=== PATIENT | female | born 1995 | race Caucasian/White ===

== ENCOUNTER → 2016-12-13 | Outpatient (CLI) | payer OTHER ==
[~2016-12-13] MED LIST: [UNRECOGNIZED DRUG - OTHER]
== END | disposition home or self-care (01) ==
LOC: C.LAB1850 11:33
PROVIDERS: ATTEND Nurse Practitioner Family
DX: J02.9 Acute pharyngitis, unspecified (principal)

== ENCOUNTER → 2017-06-06 | Outpatient (CLI) | payer OTHER ==
[2017-06-06 10:39] LABS: BASO % 0.8 %; BASO ABS # 0.04 K/uL (0-0.2); COMPLETE YES; EOS % 3.2 %; HEMATOCRIT 40.9 % (37-47); IG% 0.2 %; LYMPH % 37.6 %; LYMPH ABS # 1.87 K/uL (1.2-3.4); MEAN CELL VOLUME 88.9 fL (80-100); MEAN CORPUSCULAR HEMOGLOBIN 30.2 pg (25-34); MEAN PLATELET VOLUME 10.1 fL (7.4-10.4); MONO % 9.3 %; NEUT % 48.9 %; PLATELET COUNT 258 K/uL (130-400); WHITE BLOOD COUNT 4.97 K/uL (4.8-10.8)
[2017-06-06 11:07] LABS: ALT/SGPT 18 U/L (12-78); AST/SGOT 12 U/L (15-37); BLOOD UREA NITROGEN 12 mg/dl (7-18); CARBON DIOXIDE 29 mmol/L (21-32); CHLORIDE 104 mmol/L (98-107); CREATININE 0.74 mg/dl (0.60-1.20); GLUCOSE 83 mg/dl (70-99); SODIUM 137 mmol/L (136-145)
[2017-06-06 11:18] LABS: ALB/GLOB RATIO 1.1 (0.9-2); ALKALINE PHOSPHATASE 51 U/L (45-117); CHOLESTEROL 147 mg/dl (0-200); CHOLESTEROL/HDL RATIO 3.2; HDL CHOLESTEROL 46 mg/dl; LDL CHOLESTEROL CALCULATED 90 mg/dl; TRIGLYCERIDES 57 mg/dl (0-150); VERY LOW DENSITY LIPOPROT CALC 11 mg/dl
== END | disposition home or self-care (01) ==
LOC: C.LAB1850 09:38
PROVIDERS: ATTEND Nurse Practitioner Adult Health
DX: Z00.00 Encounter for general adult medical examination without abnormal findings (principal); R63.5 Abnormal weight gain; Z13.0 Encounter for screening for diseases of the blood and blood-forming organs and certain disorders involving the immune mechanism

== ENCOUNTER → 2017-06-13 | Outpatient (CLI) | payer OTHER ==
--- NOTE | 2017-06-13 14:03 | DIAGNOSTIC IMAGING REPORT ---
SOFT TISS HEAD/NECK-THYROID CLINICAL HISTORY: 22 years-old Female with E04.9 Thyroid [id number]. COMPARISON: None available TECHNIQUE: Multiple real time sonographic images of the thyroid were obtained accessing kumari scale appearance and color doppler flow. FINDINGS: MEASUREMENTS: Right lobe: 4.2 x 1.4 x 1.6 cm Left lobe: 3.9 x 1.6 x 1.2 cm Isthmus: 0.3 cm PARENCHYMA: The thyroid parenchymal echotexture is generally homogeneous. NODULES: Cysts of the left thyroid are noted measuring up to 0.5 cm. Left mid pole cyst measuring 0.3 cm contains nonshadowing echogenic focus suggesting colloid. There is also a probable colloid cyst within the mid pole right thyroid measuring up to 3 mm. IMPRESSION: 1. No suspicious thyroid nodules identified. 2. Subcentimeter cystic lesions of the bilateral thyroid lobes suggest colloid cysts. The above report was generated using voice recognition software. It may contain grammatical, syntax or spelling errors. Electronically signed by: Neto Redman M.D. 06/13/2017 2:01 PM Dictated Date/Time: 06/13/2017 1:58 PM
== END | disposition home or self-care (01) ==
LOC: C.ULTR 13:02
PROVIDERS: ATTEND Nurse Practitioner Adult Health
DX: E04.9 Nontoxic goiter, unspecified (principal)

== ENCOUNTER 2021-11-28 07:44 | Inpatient (IN) ==
[2021-11-28] MEDS ORDERED: OXYTOCIN 30 UNITS/500 ML BAG IV PRN (07:55)
[2021-11-28 08:39] LABS: Hematocrit (blood only) 36.5 % (37-47); Hemoglobin 12.2 g/dL (12.0-16.0); Mean Corpuscular Hemoglobin 28.8 pg (25-34); Mean Corpuscular Hgb Conc 33.4 g/dL (32-36); Mean Corpuscular Volume 86.3 fL (80-100); Mean Platelet Volume 11.4 fL (7.4-10.4); Platelet Count 245 K/uL (130-400); RDW Coefficient of Variation 13.1 % (11.5-14.5); RDW Standard Deviation 41.1 fL (36.4-46.3); Red Blood Count 4.23 M/uL (4.2-5.4); White Blood Count 8.36 K/uL (4.8-10.8)
[2021-11-28] MEDS ORDERED: DINOPROSTONE 10 MG INSERT PV ONE (09:23)
--- NOTE | 2021-11-28 10:35 | History & Physical Report ---
Date of Service November 28, 2021 Assessment & Plan (1) Post-dates : Plan: Cervidil for cervica ripening Admission and Anticipated Discharge Date Admission Date: November 28, 2021 History of Present Illness Chief Complaint: induction of labor post-dates Primary Care Provider: Chaya Beckford MD 26 F P0000 at 41 weeks admitted for induction of labor for post-dates. GBS is negative. Covid is negative. Allergies Allergy/AdvReac Type Severity Reaction Status Date / Time No Known Drug Allergies Allergy Verified 12/19/18 16:07 Home Medications Medication Instructions Recorded Confirmed Type ferrous sulfate 325 mg (65 mg 325 mg PO DAILY 11/28/21 11/28/21 History iron) tablet (Iron (ferrous sulfate)) prenat.vits,olya,[id number] 1 tab PO DAILY 11/28/21 11/28/21 History Patient History Medical History Cyst of thyroid Fatty liver Generalized anxiety disorder Palpitations Ringing in ears Thyroid enlarged Surgical History S/P tonsillectomy S/P tooth extraction Family History Grandfather (Paternal) Diabetes Hypertension Father Graves disease Grandmother (Maternal) Hypertension Diabetes Mother Hypertension Pulmonary embolism Deep vein thrombosis Grandmother (Paternal) Multiple sclerosis Denies family history of Colon cancer Ovarian cancer Prostate cancer Myocardial infarction Breast cancer Social History Smoking Status: Never smoker Second Hand Exposure: No; Hx Alcohol Use: No Hx Substance Use: No Preferred Language: Icelandic Communication Ability: Effective Visual Impairment: No Limitations Hearing Ability: Normal Geospatial Scientist Required: No Beliefs That Will Affect Care: None marital status: Current Living Situation: Spouse current occupational status: employed current occupation: [employer]. Other Information That Helps Us Care for You: No Feels Safe at Home: Yes Safety Concerns: Feels Safe At This Time Dental Care, Regularly: Yes Physical Activity Frequency: 3-4 Times per Week Assistive Devices: None OB History primip PUPPY WALKER History neg Review of Systems All systems reviewed & are unremarkable except as noted in HPI & below Physical Exam Constitutional: WD/WN, vitals as above Eyes: PERRL, conjunctivae normal, anicteric sclerae Respiratory: normal respiratory effort, lungs clear to auscultation Cardiovascular: RRR, no murmur, no edema Skin: no rashes, warm and dry Neurologic: patellar DTR's 2+ bilat, sensation intact Psychiatric: A+Ox3, euthymic affect Genitourinary: no vaginal lesions, no adnexal mass OB Exam Abdomen: + fundal height and + vertex Manual OB Exam: + cervical dilation fingertip, + cervical effacement 50% and + station high OB Exam Monitor Tracing: + external FHT monitor used, + external uterine monitor used, + category I and + normal FHT variability Cervidil 10 mg placed vaginally Results & Data ([facility]) Vital Signs (Past 12 Hours) Vital Signs Temp Pulse Resp BP 11/28/21 08:30 36.5 C 60 18 115/69 Laboratory Results Laboratory Results - last 72 hr 11/28/21 11/28/21 08:09 08:09 WBC 8.36 RBC 4.23 Hgb 12.2 Hct 36.5 L MCV 86.3 MCH 28.8 MCHC 33.4 RDW Std Deviation 41.1 RDW Coeff of Edis 13.1 Plt Count 245 MPV 11.4 H Blood Type A Positive Antibody Screen NEGATIVE Code Status & VTE Plan VTE Prophylaxis Plan VTE Prophylaxis will be ordered: No Monitoring External Monitor Cat 1
--- NOTE | 2021-11-29 00:04 | Labor Progress Brief Note ---
Date of Service November 29, 2021 Assessment & Plan Admission and Anticipated Discharge Date Admission Date: November 28, 2021 Physical Exam Genitourinary: Manual OB Exam: + cervical dilation fingertip, + cervical effacement 50% and + station high and -2 OB Exam Monitor Tracing: + external FHT monitor used, + external uterine monitor used, + category I and + normal FHT variability Cervidil is now out. cervix is softening. Will give Cytotec for further ripening. Results & Data ([facility]) Vital Signs (Past 12 Hours) Vital Signs Temp Pulse Resp BP 11/28/21 22:32 67 106/58 L 11/28/21 21:11 72 120/66 11/28/21 19:04 36.6 C 72 20 120/65 11/28/21 14:52 36.7 C 69 18 100/58 L
[2021-11-29] MEDS: miSOPROStoL 50 MCG TAB PO SCH ×4 (02:16→17:43)
[2021-11-29] MEDS ORDERED: BUTORPHANOL TARTRATE 1 MG/ML VIAL IV PRN (02:35)
--- NOTE | 2021-11-29 07:42 | Obstetrical Progress Note ---
Date of Service November 29, 2021 Assessment & Plan Admission and Anticipated Discharge Date Admission Date: November 28, 2021 Subjective Patent is seen and examined Reviewed her records and confirmed with her No medical problems No h/o STD's, no h/o HSV/ Chlamydia/ GC Received Cervidil and PO Cytotecx1 cxs q 3-5 min VE; 1/ 50-60%/ -3, posterior Unable to get another dose of Cytotec Plan o ear/ shower and start Oxytocin Continue to monitor Results & Data ([facility]) Vital Signs (Past 12 Hours) Vital Signs Temp Pulse Resp BP 11/29/21 07:00 36.9 C 63 18 102/63 11/29/21 05:49 36.7 C 66 16 118/58 L 11/29/21 02:17 68 20 113/66 11/28/21 22:32 67 20 106/58 L 11/28/21 21:11 72 120/66
[2021-11-29] MEDS: OXYTOCIN 30 UNITS/500 ML BAG IV PRN ×2 (13:30→13:59)
[2021-11-29] MEDS: LACTATED RINGER'S 1,000 ML IV PRN ×4 (13:30→18:18)
[2021-11-29] MEDS ORDERED: BUPIVACAINE 0.25% 30 ML VIAL ONE (16:44)
[2021-11-29] MEDS ORDERED: fentaNYL citrate 100 MCG/2 ML VIAL ONE (16:44)
[2021-11-29] MEDS ORDERED: ePHEDrine sulfate 50 MG/ML AMP ONE (16:44)
[2021-11-29] MEDS ORDERED: SODIUM CHLORIDE 0.9% INJ 10 ML VIAL ONE (16:44)
[2021-11-29] MEDS ORDERED: fentaNYL 2MCG/ML ROPIVACAINE 1.25MG/ML 100 ML BAG EPI ONE (16:45)
--- NOTE | 2021-11-29 17:12 | Anesthesiology Consultation ---
Date of Service November 29, 2021 Assessment & Plan (1) Encounter for pre-operative examination: Chart Review Chart Review: Acceptable Risk for Labor Epidural History Height/Weight Height: 5 ft Weight: 105.687 kg Allergies Allergy/AdvReac Type Severity Reaction Status Date / Time No Known Drug Allergies Allergy Verified 12/19/18 16:07 Medications Home Medications Medication Instructions Recorded Confirmed Last Taken ferrous sulfate 325 mg (65 mg 325 mg PO DAILY 11/28/21 11/28/21 11/28/21 06:30 iron) tablet (Iron (ferrous sulfate)) prenat.vits,olya,[id number]-[id number]-twsku 1 tab PO DAILY 11/28/21 11/28/21 11/28/21 06:30 Active Medications Generic Name Dose Route Start Last Admin Trade Name Freq PRN Reason Stop Dose Admin Butorphanol Tartrate 1 mg 11/29/21 02:35 11/29/21 14:59 Butorphanol Tartrate 1 Mg/Ml Vial IV 12/29/21 02:34 1 mg Q2HWA PRN Administration Pain Lactated Ringer's 1,000 mls @ 125 mls/hr 11/28/21 07:55 11/29/21 13:59 Lr IV 11/30/21 07:54 125 mls/hr .Q8H PRN Administration L&D Protocol Protocol Oxytocin 30 units in 500 mls @ 12 mls/hr 11/29/21 07:40 11/29/21 16:30 Pitocin IV 12/01/21 07:39 0.72 units/hr .Q24H PRN 12 mls/hr Labor Induction/Augmentation Titration Protocol 0.72 UNITS/HR Misoprostol 50 mcg 11/29/21 04:00 11/29/21 15:01 Misoprostol 50 Mcg Tab PO 12/29/21 03:59 Not Given Q4 MARISSA Past Medical History Medical History Cyst of thyroid Fatty liver Generalized anxiety disorder Morbid obesity Palpitations Ringing in ears Thyroid enlarged Past Family History Family History Grandfather (Paternal) Diabetes Hypertension Father Graves disease Grandmother (Maternal) Hypertension Diabetes Mother Hypertension Pulmonary embolism Deep vein thrombosis Grandmother (Paternal) Multiple sclerosis Denies family history of Colon cancer Ovarian cancer Prostate cancer Myocardial infarction Breast cancer Past Surgical History Surgical History S/P tonsillectomy S/P tooth extraction Social History Smoking Status: Never smoker tobacco type: smokeless tobacco Hx Alcohol Use: No Hx Substance Use: No Physical Exam Vital Signs Last Vital Signs Temp 36.6 C 11/29/21 16:56 Pulse 69 11/29/21 17:08 Resp 18 11/29/21 16:56 BP 115/74 11/29/21 16:57 Pulse Ox 98 11/29/21 17:08 Testing Laboratory Results 11/28/21 08:09 Blood Type A Positive 11/28/21 08:09 Antibody Screen NEGATIVE 11/28/21 08:09
[2021-11-29] MEDS ORDERED: NALOXONE HCL 0.4 MG/1 ML VIAL/CARP IV PRN (17:48)
[2021-11-29] MEDS ORDERED: ePHEDrine sulfate 50 MG/ML AMP IV PRN (17:48)
[2021-11-29] MEDS ORDERED: NALOXONE HCL 1 MG in SODIUM CHLORIDE 0.9% 1000ML 1,000 ML IV PRN (17:48)
[2021-11-29] MEDS ORDERED: ONDANSETRON INJ 2 MG/ML 2 ML VIAL IV PRN (17:48)
[2021-11-29] MEDS ORDERED: fentaNYL 2MCG/ML ROPIVACAINE 1.25MG/ML 100 ML BAG EPI PRN (17:48)
--- NOTE | 2021-11-29 18:08 | Obstetrical Progress Note ---
Date of Service November 29, 2021 Assessment & Plan Admission and Anticipated Discharge Date Admission Date: November 28, 2021 Subjective Patient is reevaluated. She is comfortable now, received epidural for pain. Rajput came out by itself. VE; 5/ 70%/ -2, LOP, AROM'ed clear fluid FHR categ I [place] ctxs q 4-5 min, pitocin at 14 miu/min Continue to monitor closely Results & Data ([facility]) Vital Signs (Past 12 Hours) Vital Signs Temp Pulse Resp BP Pulse Ox 11/29/21 18:04 79 124/61 85 L 11/29/21 18:01 74 98 11/29/21 17:59 63 137/65 91 11/29/21 17:57 74 115/65 11/29/21 17:56 73 97 11/29/21 17:55 68 114/55 L 11/29/21 17:53 68 118/59 L 11/29/21 17:51 75 104/56 L 98 11/29/21 17:49 69 100/57 L 11/29/21 17:47 76 96/56 L 11/29/21 17:46 74 97 11/29/21 17:45 63 96/57 L 11/29/21 17:43 68 99/69 L 11/29/21 17:41 61 115/58 L 98 11/29/21 17:39 57 L 124/63 11/29/21 17:37 58 L 132/67 11/29/21 17:36 68 97 11/29/21 17:13 78 98 11/29/21 17:08 69 98 11/29/21 17:03 74 97 11/29/21 16:58 64 98 11/29/21 16:57 70 115/74 11/29/21 16:56 36.6 C 18 11/29/21 16:02 64 118/75 11/29/21 15:02 36.7 C 74 20 128/78 11/29/21 13:57 67 109/62 11/29/21 13:56 18 11/29/21 13:30 68 110/58 L 11/29/21 11:07 36.8 C 64 18 125/81 11/29/21 07:00 36.9 C 63 18 102/63
[2021-11-29] MEDS ORDERED: Nursing to Pharmacy Communication SCH (18:30)
--- NOTE | 2021-11-29 19:56 | Obstetrical Progress Note ---
Date of Service November 29, 2021 Assessment & Plan Admission and Anticipated Discharge Date Admission Date: November 28, 2021 Subjective Patient is still comfortable. Vital signs stable afebrile, heart rate category 1 with early decelerations with some of the contractions, [place] with contractions every 2 to 4 minutes, oxytocin is at 18 mIU/ MIN Vaginal exam, cervix is 5 cm dilated, 80% head is cone-shaped with a small caput and 0 station, unable to feel fontanelles, Bed side US: vertex, OA, EFW; 3221 gr, placenta fundal Plan to go up with oxytocin, change positions and continue to monitor closely. Results & Data ([facility]) Vital Signs (Past 12 Hours) Vital Signs Temp Pulse Resp BP Pulse Ox 11/29/21 19:51 77 96 11/29/21 19:48 58 L 120/65 11/29/21 19:46 64 96 11/29/21 19:41 65 97 11/29/21 19:37 61 94 11/29/21 19:36 59 L 95 11/29/21 19:34 63 101/59 L 11/29/21 19:31 61 96 11/29/21 19:30 72 92 11/29/21 19:26 60 96 11/29/21 19:23 61 94 11/29/21 19:21 60 97 11/29/21 19:19 59 L 128/62 11/29/21 19:16 58 L 96 11/29/21 19:11 61 95 11/29/21 19:06 66 95 11/29/21 19:04 63 108/58 L 11/29/21 19:01 71 98 11/29/21 19:00 36.8 C 18 11/29/21 18:56 63 97 11/29/21 18:51 59 L 97 11/29/21 18:48 63 117/64 11/29/21 18:46 60 95 11/29/21 18:41 63 97 11/29/21 18:36 71 94 11/29/21 18:34 63 129/72 11/29/21 18:33 18 11/29/21 18:31 63 97 11/29/21 18:26 69 97 11/29/21 18:21 70 93 11/29/21 18:17 65 122/65 11/29/21 18:16 75 98 11/29/21 18:11 75 97 11/29/21 18:09 70 132/80 93 11/29/21 18:07 71 125/66 11/29/21 18:06 77 97 11/29/21 18:04 79 124/61 85 L 11/29/21 18:01 74 98 11/29/21 17:59 63 137/65 91 11/29/21 17:58 18 11/29/21 17:57 74 115/65 11/29/21 17:56 73 97 11/29/21 17:55 68 114/55 L 11/29/21 17:53 68 118/59 L 11/29/21 17:51 75 104/56 L 98 11/29/21 17:49 69 100/57 L 11/29/21 17:47 76 96/56 L 11/29/21 17:46 74 97 11/29/21 17:45 63 96/57 L 11/29/21 17:43 68 99/69 L 11/29/21 17:41 61 115/58 L 98 11/29/21 17:39 57 L 124/63 11/29/21 17:37 58 L 132/67 11/29/21 17:36 68 97 11/29/21 17:13 78 98 11/29/21 17:08 69 98 11/29/21 17:03 74 97 11/29/21 16:58 64 98 11/29/21 16:57 70 115/74 11/29/21 16:56 36.6 C 18 11/29/21 16:02 64 118/75 11/29/21 15:02 36.7 C 74 20 128/78 11/29/21 13:57 67 109/62 11/29/21 13:56 18 11/29/21 13:30 68 110/58 L 11/29/21 11:07 36.8 C 64 18 125/81
--- NOTE | 2021-11-29 20:06 | Obstetrical Progress Note ---
Date of Service November 29, 2021 Assessment & Plan Admission and Anticipated Discharge Date Admission Date: November 28, 2021 Subjective IUPC is placed. Results & Data ([facility]) Vital Signs (Past 12 Hours) Vital Signs Temp Pulse Resp BP Pulse Ox 11/29/21 20:04 75 11/29/21 20:03 61 117/59 L 11/29/21 20:01 60 97 11/29/21 19:56 63 96 11/29/21 19:51 77 96 11/29/21 19:48 58 L 120/65 11/29/21 19:46 64 96 11/29/21 19:41 65 97 11/29/21 19:37 61 94 11/29/21 19:36 59 L 95 11/29/21 19:34 63 101/59 L 11/29/21 19:31 61 96 11/29/21 19:30 72 92 11/29/21 19:26 60 96 11/29/21 19:23 61 94 11/29/21 19:21 60 97 11/29/21 19:19 59 L 128/62 11/29/21 19:16 58 L 96 11/29/21 19:11 61 95 11/29/21 19:06 66 95 11/29/21 19:04 63 108/58 L 11/29/21 19:01 71 98 11/29/21 19:00 36.8 C 18 11/29/21 18:56 63 97 11/29/21 18:51 59 L 97 11/29/21 18:48 63 117/64 11/29/21 18:46 60 95 11/29/21 18:41 63 97 11/29/21 18:36 71 94 11/29/21 18:34 63 129/72 11/29/21 18:33 18 11/29/21 18:31 63 97 11/29/21 18:26 69 97 11/29/21 18:21 70 93 11/29/21 18:17 65 122/65 11/29/21 18:16 75 98 11/29/21 18:11 75 97 11/29/21 18:09 70 132/80 93 11/29/21 18:07 71 125/66 11/29/21 18:06 77 97 11/29/21 18:04 79 124/61 85 L 11/29/21 18:01 74 98 11/29/21 17:59 63 137/65 91 11/29/21 17:58 18 11/29/21 17:57 74 115/65 11/29/21 17:56 73 97 11/29/21 17:55 68 114/55 L 11/29/21 17:53 68 118/59 L 11/29/21 17:51 75 104/56 L 98 11/29/21 17:49 69 100/57 L 11/29/21 17:47 76 96/56 L 11/29/21 17:46 74 97 11/29/21 17:45 63 96/57 L 11/29/21 17:43 68 99/69 L 11/29/21 17:41 61 115/58 L 98 11/29/21 17:39 57 L 124/63 11/29/21 17:37 58 L 132/67 11/29/21 17:36 68 97 11/29/21 17:13 78 98 11/29/21 17:08 69 98 11/29/21 17:03 74 97 11/29/21 16:58 64 98 11/29/21 16:57 70 115/74 11/29/21 16:56 36.6 C 18 11/29/21 16:02 64 118/75 11/29/21 15:02 36.7 C 74 20 128/78 11/29/21 13:57 67 109/62 11/29/21 13:56 18 11/29/21 13:30 68 110/58 L 11/29/21 11:07 36.8 C 64 18 125/81
--- NOTE | 2021-11-29 22:11 | Obstetrical Progress Note ---
Date of Service November 29, 2021 Assessment & Plan Admission and Anticipated Discharge Date Admission Date: November 28, 2021 Subjective Patient is reevaluated FHR had some mild decels to 110-120's some with late component, moderate variability and accels in between+ Ctxs q2-3 min, 170-200 MVU/ min, Pitocin is at 24 VE; unchanged, 5-6 cm/ 80%/ 0, coned head, FHR acceleration after scalp stimulation+ Discussed the findings in details, Patient desires to continue with trial of labor Continue to monitor closely Results & Data ([facility]) Vital Signs (Past 12 Hours) Vital Signs Temp Pulse Resp BP Pulse Ox 11/29/21 22:06 66 95 11/29/21 22:03 64 123/70 11/29/21 22:01 69 95 11/29/21 21:59 65 94 11/29/21 21:56 65 95 11/29/21 21:51 68 95 11/29/21 21:48 69 131/74 94 11/29/21 21:46 70 97 11/29/21 21:41 63 95 11/29/21 21:40 63 94 11/29/21 21:36 59 L 95 11/29/21 21:33 60 106/57 L 11/29/21 21:31 62 93 11/29/21 21:26 63 94 11/29/21 21:21 63 94 11/29/21 21:19 61 94 11/29/21 21:18 60 106/59 L 11/29/21 21:16 63 94 11/29/21 21:11 63 94 11/29/21 21:10 63 94 11/29/21 21:06 65 93 11/29/21 21:05 62 113/60 11/29/21 21:02 57 L 94 11/29/21 21:01 62 94 11/29/21 20:56 63 94 11/29/21 20:51 70 95 11/29/21 20:50 70 119/58 L 11/29/21 20:49 74 93 11/29/21 20:46 57 L 95 11/29/21 20:42 65 94 11/29/21 20:41 67 95 11/29/21 20:40 36.8 C 18 11/29/21 20:36 61 94 11/29/21 20:33 61 119/71 11/29/21 20:31 60 94 11/29/21 20:26 58 L 93 11/29/21 20:24 58 L 94 11/29/21 20:21 60 93 11/29/21 20:18 59 L 125/74 94 11/29/21 20:16 59 L 93 11/29/21 20:11 63 93 11/29/21 20:10 63 94 11/29/21 20:06 66 96 11/29/21 20:04 75 94 11/29/21 20:03 61 117/59 L 11/29/21 20:01 60 97 11/29/21 19:56 63 96 11/29/21 19:51 77 96 11/29/21 19:48 58 L 120/65 11/29/21 19:46 64 96 11/29/21 19:41 65 97 11/29/21 19:37 61 94 11/29/21 19:36 59 L 95 11/29/21 19:34 63 101/59 L 11/29/21 19:31 61 96 11/29/21 19:30 72 92 11/29/21 19:26 60 96 11/29/21 19:23 61 94 11/29/21 19:21 60 97 11/29/21 19:19 59 L 128/62 11/29/21 19:16 58 L 96 11/29/21 19:11 61 95 11/29/21 19:06 66 95 11/29/21 19:04 63 108/58 L 11/29/21 19:01 71 98 11/29/21 19:00 36.8 C 18 11/29/21 18:56 63 97 11/29/21 18:51 59 L 97 11/29/21 18:48 63 117/64 11/29/21 18:46 60 95 11/29/21 18:41 63 97 11/29/21 18:36 71 94 11/29/21 18:34 63 129/72 11/29/21 18:33 18 11/29/21 18:31 63 97 11/29/21 18:26 69 97 11/29/21 18:21 70 93 11/29/21 18:17 65 122/65 11/29/21 18:16 75 98 11/29/21 18:11 75 97 11/29/21 18:09 70 132/80 93 11/29/21 18:07 71 125/66 11/29/21 18:06 77 97 11/29/21 18:04 79 124/61 85 L 11/29/21 18:01 74 98 11/29/21 17:59 63 137/65 91 11/29/21 17:58 18 11/29/21 17:57 74 115/65 11/29/21 17:56 73 97 11/29/21 17:55 68 114/55 L 11/29/21 17:53 68 118/59 L 11/29/21 17:51 75 104/56 L 98 11/29/21 17:49 69 100/57 L 11/29/21 17:47 76 96/56 L 11/29/21 17:46 74 97 11/29/21 17:45 63 96/57 L 11/29/21 17:43 68 99/69 L 11/29/21 17:41 61 115/58 L 98 11/29/21 17:39 57 L 124/63 11/29/21 17:37 58 L 132/67 11/29/21 17:36 68 97 11/29/21 17:13 78 98 11/29/21 17:08 69 98 11/29/21 17:03 74 97 11/29/21 16:58 64 98 11/29/21 16:57 70 115/74 11/29/21 16:56 36.6 C 18 11/29/21 16:02 64 118/75 11/29/21 15:02 36.7 C 74 20 128/78 11/29/21 13:57 67 109/62 11/29/21 13:56 18 11/29/21 13:30 68 110/58 L 11/29/21 11:07 36.8 C 64 18 125/81
--- NOTE | 2021-11-29 23:20 | Obstetrical Progress Note ---
Date of Service November 29, 2021 Assessment & Plan Admission and Anticipated Discharge Date Admission Date: November 28, 2021 Subjective FHR had been categ I Pitocin at 26 miu/min VE; 6-7 cm/ 80%/ 0 to +1 with ctxs Ctxs q 1-4 min, 150-200 mvu/ 10 min Rajput cathether in SCD's on Continue to monitor closely Results & Data ([facility]) Vital Signs (Past 12 Hours) Vital Signs Temp Pulse Resp BP Pulse Ox 11/29/21 23:17 66 97 11/29/21 23:12 65 97 11/29/21 23:07 69 96 11/29/21 23:04 81 94 11/29/21 23:03 64 121/74 11/29/21 23:02 65 97 11/29/21 22:58 63 94 11/29/21 22:57 63 96 11/29/21 22:52 64 97 11/29/21 22:50 61 119/68 11/29/21 22:47 62 96 11/29/21 22:42 62 96 11/29/21 22:37 64 96 11/29/21 22:34 66 107/64 93 11/29/21 22:32 72 97 11/29/21 22:27 64 96 11/29/21 22:26 62 94 11/29/21 22:22 63 96 11/29/21 22:19 64 144/84 H 11/29/21 22:17 65 96 11/29/21 22:12 66 95 11/29/21 22:06 66 95 11/29/21 22:03 64 123/70 11/29/21 22:01 69 95 11/29/21 21:59 65 94 11/29/21 21:56 65 95 11/29/21 21:51 68 95 11/29/21 21:48 69 131/74 94 11/29/21 21:46 70 97 11/29/21 21:41 63 95 11/29/21 21:40 63 94 11/29/21 21:36 59 L 95 11/29/21 21:33 60 106/57 L 11/29/21 21:31 62 93 11/29/21 21:26 63 94 11/29/21 21:21 63 94 11/29/21 21:19 61 94 11/29/21 21:18 60 106/59 L 11/29/21 21:16 63 94 11/29/21 21:11 63 94 11/29/21 21:10 63 94 11/29/21 21:06 65 93 11/29/21 21:05 62 113/60 11/29/21 21:02 57 L 94 11/29/21 21:01 62 94 11/29/21 20:56 63 94 11/29/21 20:51 70 95 11/29/21 20:50 70 119/58 L 11/29/21 20:49 74 93 11/29/21 20:46 57 L 95 11/29/21 20:42 65 94 11/29/21 20:41 67 95 11/29/21 20:40 36.8 C 18 11/29/21 20:36 61 94 11/29/21 20:33 61 119/71 11/29/21 20:31 60 94 11/29/21 20:26 58 L 93 11/29/21 20:24 58 L 94 11/29/21 20:21 60 93 11/29/21 20:18 59 L 125/74 94 11/29/21 20:16 59 L 93 11/29/21 20:11 63 93 11/29/21 20:10 63 94 11/29/21 20:06 66 96 11/29/21 20:04 75 94 11/29/21 20:03 61 117/59 L 11/29/21 20:01 60 97 11/29/21 19:56 63 96 11/29/21 19:51 77 96 11/29/21 19:48 58 L 120/65 11/29/21 19:46 64 96 11/29/21 19:41 65 97 11/29/21 19:37 61 94 11/29/21 19:36 59 L 95 11/29/21 19:34 63 101/59 L 11/29/21 19:31 61 96 11/29/21 19:30 72 92 11/29/21 19:26 60 96 11/29/21 19:23 61 94 11/29/21 19:21 60 97 11/29/21 19:19 59 L 128/62 11/29/21 19:16 58 L 96 11/29/21 19:11 61 95 11/29/21 19:06 66 95 11/29/21 19:04 63 108/58 L 11/29/21 19:01 71 98 11/29/21 19:00 36.8 C 18 11/29/21 18:56 63 97 11/29/21 18:51 59 L 97 11/29/21 18:48 63 117/64 11/29/21 18:46 60 95 11/29/21 18:41 63 97 11/29/21 18:36 71 94 11/29/21 18:34 63 129/72 11/29/21 18:33 18 11/29/21 18:31 63 97 11/29/21 18:26 69 97 11/29/21 18:21 70 93 11/29/21 18:17 65 122/65 11/29/21 18:16 75 98 11/29/21 18:11 75 97 11/29/21 18:09 70 132/80 93 11/29/21 18:07 71 125/66 11/29/21 18:06 77 97 11/29/21 18:04 79 124/61 85 L 11/29/21 18:01 74 98 11/29/21 17:59 63 137/65 91 11/29/21 17:58 18 11/29/21 17:57 74 115/65 11/29/21 17:56 73 97 11/29/21 17:55 68 114/55 L 11/29/21 17:53 68 118/59 L 11/29/21 17:51 75 104/56 L 98 11/29/21 17:49 69 100/57 L 11/29/21 17:47 76 96/56 L 11/29/21 17:46 74 97 11/29/21 17:45 63 96/57 L 11/29/21 17:43 68 99/69 L 11/29/21 17:41 61 115/58 L 98 11/29/21 17:39 57 L 124/63 11/29/21 17:37 58 L 132/67 11/29/21 17:36 68 97 11/29/21 17:13 78 98 11/29/21 17:08 69 98 11/29/21 17:03 74 97 11/29/21 16:58 64 98 11/29/21 16:57 70 115/74 11/29/21 16:56 36.6 C 18 11/29/21 16:02 64 118/75 11/29/21 15:02 36.7 C 74 20 128/78 11/29/21 13:57 67 109/62 11/29/21 13:56 18 11/29/21 13:30 68 110/58 L
--- NOTE | 2021-11-30 01:13 | Obstetrical Progress Note ---
Date of Service November 30, 2021 Assessment & Plan Admission and Anticipated Discharge Date Admission Date: November 28, 2021 Subjective Patient has been painful, pain button and increased epidural settings have not b een helping. FHR with prolonged accels to 170-180's, moderate to marked variability, coming down to baseline of 130's IUPC registering ctxs 2 -4 min, Pitocin is at 26 miu/min VE; unchanged, 6/ 80%/ 0, part of the head bulging above pubic bone, suspected CPD Protracted labor with no cervical change despite adequate contractions. Recommended delivery Patient wants to think about it and decide. Results & Data ([facility]) Vital Signs (Past 12 Hours) Vital Signs Temp Pulse Resp BP Pulse Ox 11/30/21 01:09 68 94 11/30/21 01:07 67 92 11/30/21 01:03 85 93 11/30/21 01:02 68 97 11/30/21 00:57 36.9 C 68 18 98 11/30/21 00:53 72 94 11/30/21 00:52 70 96 11/30/21 00:48 64 130/83 11/30/21 00:47 65 95 11/30/21 00:46 65 94 11/30/21 00:42 68 96 11/30/21 00:40 68 94 11/30/21 00:37 70 95 11/30/21 00:33 73 138/90 93 11/30/21 00:32 73 95 11/30/21 00:27 69 97 11/30/21 00:24 67 90 11/30/21 00:22 76 97 11/30/21 00:19 68 93 11/30/21 00:18 63 125/60 11/30/21 00:17 66 96 11/30/21 00:12 68 95 11/30/21 00:07 59 L 98 11/30/21 00:04 65 127/59 L 11/30/21 00:02 70 96 11/29/21 23:57 63 97 11/29/21 23:52 64 97 11/29/21 23:48 59 L 104/57 L 11/29/21 23:47 62 97 11/29/21 23:42 61 97 11/29/21 23:37 62 97 11/29/21 23:33 67 108/55 L 11/29/21 23:32 74 96 11/29/21 23:31 86 89 L 11/29/21 23:27 64 95 11/29/21 23:25 68 93 11/29/21 23:22 67 96 11/29/21 23:19 77 99/65 L 94 11/29/21 23:17 66 97 11/29/21 23:12 65 97 11/29/21 23:07 37.0 C 69 18 96 11/29/21 23:04 81 94 11/29/21 23:03 64 121/74 11/29/21 23:02 65 97 11/29/21 22:58 63 94 11/29/21 22:57 63 96 11/29/21 22:52 64 97 11/29/21 22:50 61 119/68 11/29/21 22:47 62 96 11/29/21 22:42 62 96 11/29/21 22:37 64 96 11/29/21 22:34 66 107/64 93 11/29/21 22:32 72 97 11/29/21 22:27 64 96 11/29/21 22:26 62 94 11/29/21 22:22 63 96 11/29/21 22:19 64 144/84 H 11/29/21 22:17 65 96 11/29/21 22:12 66 95 11/29/21 22:06 66 95 11/29/21 22:03 64 123/70 11/29/21 22:01 69 95 11/29/21 21:59 65 94 11/29/21 21:56 65 95 11/29/21 21:51 68 95 11/29/21 21:48 69 131/74 94 11/29/21 21:46 70 97 11/29/21 21:41 63 95 11/29/21 21:40 63 94 11/29/21 21:36 59 L 95 11/29/21 21:33 60 106/57 L 11/29/21 21:31 62 93 11/29/21 21:26 63 94 11/29/21 21:21 63 94 11/29/21 21:19 61 94 11/29/21 21:18 60 106/59 L 11/29/21 21:16 63 94 11/29/21 21:11 63 94 11/29/21 21:10 63 94 11/29/21 21:06 65 93 11/29/21 21:05 62 113/60 11/29/21 21:02 57 L 94 11/29/21 21:01 62 94 11/29/21 20:56 63 94 11/29/21 20:51 70 95 11/29/21 20:50 70 119/58 L 11/29/21 20:49 74 93 11/29/21 20:46 57 L 95 11/29/21 20:42 65 94 11/29/21 20:41 67 95 11/29/21 20:40 36.8 C 18 11/29/21 20:36 61 94 11/29/21 20:33 61 119/71 11/29/21 20:31 60 94 11/29/21 20:26 58 L 93 11/29/21 20:24 58 L 94 11/29/21 20:21 60 93 11/29/21 20:18 59 L 125/74 94 11/29/21 20:16 59 L 93 11/29/21 20:11 63 93 11/29/21 20:10 63 94 11/29/21 20:06 66 96 11/29/21 20:04 75 94 11/29/21 20:03 61 117/59 L 11/29/21 20:01 60 97 11/29/21 19:56 63 96 11/29/21 19:51 77 96 11/29/21 19:48 58 L 120/65 11/29/21 19:46 64 96 11/29/21 19:41 65 97 11/29/21 19:37 61 94 11/29/21 19:36 59 L 95 11/29/21 19:34 63 101/59 L 11/29/21 19:31 61 96 11/29/21 19:30 72 92 11/29/21 19:26 60 96 11/29/21 19:23 61 94 11/29/21 19:21 60 97 11/29/21 19:19 59 L 128/62 11/29/21 19:16 58 L 96 11/29/21 19:11 61 95 11/29/21 19:06 66 95 11/29/21 19:04 63 108/58 L 11/29/21 19:01 71 98 11/29/21 19:00 36.8 C 18 11/29/21 18:56 63 97 11/29/21 18:51 59 L 97 11/29/21 18:48 63 117/64 11/29/21 18:46 60 95 11/29/21 18:41 63 97 11/29/21 18:36 71 94 11/29/21 18:34 63 129/72 11/29/21 18:33 18 11/29/21 18:31 63 97 11/29/21 18:26 69 97 11/29/21 18:21 70 93 11/29/21 18:17 65 122/65 11/29/21 18:16 75 98 11/29/21 18:11 75 97 11/29/21 18:09 70 132/80 93 11/29/21 18:07 71 125/66 11/29/21 18:06 77 97 11/29/21 18:04 79 124/61 85 L 11/29/21 18:01 74 98 11/29/21 17:59 63 137/65 91 11/29/21 17:58 18 11/29/21 17:57 74 115/65 11/29/21 17:56 73 97 11/29/21 17:55 68 114/55 L 11/29/21 17:53 68 118/59 L 11/29/21 17:51 75 104/56 L 98 11/29/21 17:49 69 100/57 L 11/29/21 17:47 76 96/56 L 11/29/21 17:46 74 97 11/29/21 17:45 63 96/57 L 11/29/21 17:43 68 99/69 L 11/29/21 17:41 61 115/58 L 98 11/29/21 17:39 57 L 124/63 11/29/21 17:37 58 L 132/67 11/29/21 17:36 68 97 11/29/21 17:13 78 98 11/29/21 17:08 69 98 11/29/21 17:03 74 97 11/29/21 16:58 64 98 11/29/21 16:57 70 115/74 11/29/21 16:56 36.6 C 18 11/29/21 16:02 64 118/75 11/29/21 15:02 36.7 C 74 20 128/78 11/29/21 13:57 67 109/62 11/29/21 13:56 18 11/29/21 13:30 68 110/58 L
--- NOTE | 2021-11-30 01:23 | Obstetrical Progress Note ---
Date of Service November 30, 2021 Assessment & Plan Admission and Anticipated Discharge Date Admission Date: November 28, 2021 Subjective Patient decided to have C Section. Patient understands the risks of C section as a major surgery, bleeding , infection, injury to surrounding organs like bowels, bladder, ureters, adhesions, scarring, wound infection, blood cloths in legs/ lungs, longer recovery She signed an informed consent. All questions were answered. Results & Data ([facility]) Vital Signs (Past 12 Hours) Vital Signs Temp Pulse Resp BP Pulse Ox 11/30/21 01:19 65 93 11/30/21 01:17 68 97 11/30/21 01:12 67 96 11/30/21 01:09 68 94 11/30/21 01:07 67 92 11/30/21 01:03 85 93 11/30/21 01:02 68 97 11/30/21 00:57 36.9 C 68 18 98 11/30/21 00:53 72 94 11/30/21 00:52 70 96 11/30/21 00:48 64 130/83 11/30/21 00:47 65 95 11/30/21 00:46 65 94 11/30/21 00:42 68 96 11/30/21 00:40 68 94 11/30/21 00:37 70 95 11/30/21 00:33 73 138/90 93 11/30/21 00:32 73 95 11/30/21 00:27 69 97 11/30/21 00:24 67 90 11/30/21 00:22 76 97 11/30/21 00:19 68 93 11/30/21 00:18 63 125/60 11/30/21 00:17 66 96 11/30/21 00:12 68 95 11/30/21 00:07 59 L 98 11/30/21 00:04 65 127/59 L 11/30/21 00:02 70 96 11/29/21 23:57 63 97 11/29/21 23:52 64 97 11/29/21 23:48 59 L 104/57 L 11/29/21 23:47 62 97 11/29/21 23:42 61 97 11/29/21 23:37 62 97 11/29/21 23:33 67 108/55 L 11/29/21 23:32 74 96 06/22/22 23:31 86 89 L 11/29/21 23:27 64 95 11/29/21 23:25 68 93 11/29/21 23:22 67 96 11/29/21 23:19 77 99/65 L 94 11/29/21 23:17 66 97 11/29/21 23:12 65 97 11/29/21 23:07 37.0 C 69 18 96 11/29/21 23:04 81 94 11/29/21 23:03 64 121/74 11/29/21 23:02 65 97 11/29/21 22:58 63 94 11/29/21 22:57 63 96 11/29/21 22:52 64 97 11/29/21 22:50 61 119/68 11/29/21 22:47 62 96 11/29/21 22:42 62 96 11/29/21 22:37 64 96 11/29/21 22:34 66 107/64 93 11/29/21 22:32 72 97 11/29/21 22:27 64 96 11/29/21 22:26 62 94 11/29/21 22:22 63 96 11/29/21 22:19 64 144/84 H 11/29/21 22:17 65 96 11/29/21 22:12 66 95 11/29/21 22:06 66 95 11/29/21 22:03 64 123/70 11/29/21 22:01 69 95 11/29/21 21:59 65 94 11/29/21 21:56 65 95 11/29/21 21:51 68 95 11/29/21 21:48 69 131/74 94 11/29/21 21:46 70 97 11/29/21 21:41 63 95 11/29/21 21:40 63 94 11/29/21 21:36 59 L 95 11/29/21 21:33 60 106/57 L 11/29/21 21:31 62 93 11/29/21 21:26 63 94 11/29/21 21:21 63 94 11/29/21 21:19 61 94 11/29/21 21:18 60 106/59 L 11/29/21 21:16 63 94 11/29/21 21:11 63 94 11/29/21 21:10 63 94 11/29/21 21:06 65 93 11/29/21 21:05 62 113/60 11/29/21 21:02 57 L 94 11/29/21 21:01 62 94 11/29/21 20:56 63 94 11/29/21 20:51 70 95 11/29/21 20:50 70 119/58 L 11/29/21 20:49 74 93 11/29/21 20:46 57 L 95 11/29/21 20:42 65 94 11/29/21 20:41 67 95 11/29/21 20:40 36.8 C 18 11/29/21 20:36 61 94 11/29/21 20:33 61 119/71 11/29/21 20:31 60 94 11/29/21 20:26 58 L 93 11/29/21 20:24 58 L 94 11/29/21 20:21 60 93 11/29/21 20:18 59 L 125/74 94 11/29/21 20:16 59 L 93 11/29/21 20:11 63 93 11/29/21 20:10 63 94 11/29/21 20:06 66 96 11/29/21 20:04 75 94 11/29/21 20:03 61 117/59 L 11/29/21 20:01 60 97 11/29/21 19:56 63 96 11/29/21 19:51 77 96 11/29/21 19:48 58 L 120/65 11/29/21 19:46 64 96 11/29/21 19:41 65 97 11/29/21 19:37 61 94 11/29/21 19:36 59 L 95 11/29/21 19:34 63 101/59 L 11/29/21 19:31 61 96 11/29/21 19:30 72 92 11/29/21 19:26 60 96 11/29/21 19:23 61 94 11/29/21 19:21 60 97 11/29/21 19:19 59 L 128/62 11/29/21 19:16 58 L 96 11/29/21 19:11 61 95 11/29/21 19:06 66 95 11/29/21 19:04 63 108/58 L 11/29/21 19:01 71 98 11/29/21 19:00 36.8 C 18 11/29/21 18:56 63 97 11/29/21 18:51 59 L 97 06/22/22 18:48 63 117/64 11/29/21 18:46 60 95 11/29/21 18:41 63 97 11/29/21 18:36 71 94 11/29/21 18:34 63 129/72 11/29/21 18:33 18 11/29/21 18:31 63 97 11/29/21 18:26 69 97 11/29/21 18:21 70 93 11/29/21 18:17 65 122/65 11/29/21 18:16 75 98 11/29/21 18:11 75 97 11/29/21 18:09 70 132/80 93 11/29/21 18:07 71 125/66 11/29/21 18:06 77 97 11/29/21 18:04 79 124/61 85 L 11/29/21 18:01 74 98 11/29/21 17:59 63 137/65 91 11/29/21 17:58 18 11/29/21 17:57 74 115/65 11/29/21 17:56 73 97 11/29/21 17:55 68 114/55 L 11/29/21 17:53 68 118/59 L 11/29/21 17:51 75 104/56 L 98 11/29/21 17:49 69 100/57 L 11/29/21 17:47 76 96/56 L 11/29/21 17:46 74 97 11/29/21 17:45 63 96/57 L 11/29/21 17:43 68 99/69 L 11/29/21 17:41 61 115/58 L 98 11/29/21 17:39 57 L 124/63 11/29/21 17:37 58 L 132/67 11/29/21 17:36 68 97 11/29/21 17:13 78 98 11/29/21 17:08 69 98 11/29/21 17:03 74 97 11/29/21 16:58 64 98 11/29/21 16:57 70 115/74 11/29/21 16:56 36.6 C 18 11/29/21 16:02 64 118/75 11/29/21 15:02 36.7 C 74 20 128/78 11/29/21 13:57 67 109/62 11/29/21 13:56 18 11/29/21 13:30 68 110/58 L
[2021-11-30] MEDS ORDERED: LACTATED RINGER'S 1,000 ML IV SCH ×3 (01:30→03:45)
[2021-11-30] MEDS: LACTATED RINGER'S 1,000 ML IV PRN (01:31)
[2021-11-30] MEDS ORDERED: CITRIC ACID/SODIUM CITRATE 15 ML UDC PO SCH (01:45)
[2021-11-30] MEDS ORDERED: CLINDAMYCIN/D5W 900 MG/50 ML BAG IV SCH (02:00)
[2021-11-30] MEDS ORDERED: PHENYLEPHRINE HCL 10 MG/ML VIAL ONE (02:05)
[2021-11-30] MEDS ORDERED: PROPOFOL IV EMULSION 10 MG/ML 20 ML VIAL IV ONE (02:05)
[2021-11-30] MEDS ORDERED: SUCCINYLCHOLINE CHLORIDE 20 MG/ML 10 ML VIAL IV ONE (02:05)
[2021-11-30] MEDS ORDERED: MoRPHine SULFATE PF 1 MG/ML 10 ML AMP/VIAL ONE (02:06)
[2021-11-30] MEDS ORDERED: fentaNYL citrate 100 MCG/2 ML VIAL ONE (02:06)
[2021-11-30] MEDS ORDERED: OXYTOCIN 10 UNITS/ML 10ML VIAL ONE ×2 (02:45→02:51)
[2021-11-30] MEDS ORDERED: METHYLERGONOVINE MALEATE 0.2 MG/ML AMP ONE (02:54)
[2021-11-30] MEDS ORDERED: ePHEDrine sulfate 50 MG/ML AMP IV PRN (02:56)
[2021-11-30] MEDS ORDERED: LACTATED RINGER'S 500 ML IV PRN (02:56)
[2021-11-30] MEDS ORDERED: NALBUPHINE HCL INJ 10 MG/ML AMP IV PRN (02:56)
[2021-11-30] MEDS ORDERED: NALOXONE HCL 1 MG in SODIUM CHLORIDE 0.9% 1000ML 1,000 ML IV PRN (02:56)
[2021-11-30] MEDS ORDERED: ONDANSETRON INJ 2 MG/ML 2 ML VIAL IV PRN ×2 (02:56→20:56)
[2021-11-30] MEDS ORDERED: NALOXONE HCL 0.08 MG in SYRINGE 1.8 ML IV PRN (02:56)
[2021-11-30] MEDS ORDERED: MoRPHine SULFATE PF 1 MG/ML 10 ML AMP/VIAL INT SPINAL ONE (02:56)
[2021-11-30] MEDS ORDERED: HYDROmorphone INJ 0.5 MG/0.5 ML SYR IV PRN (02:56)
[2021-11-30] MEDS ORDERED: NALOXONE HCL 0.4 MG/1 ML VIAL/CARP IV PRN (02:56)
[2021-11-30] MEDS ORDERED: diphenhydrAMINE 50 MG/ML VIAL IV PRN ×2 (02:56→20:56)
[2021-11-30] MEDS ORDERED: ONDANSETRON INJ 2 MG/ML 2 ML VIAL ONE (02:59)
[2021-11-30] MEDS ORDERED: DC INTRASPINAL MORPHINE SCH (03:00)
[2021-11-30] MEDS ORDERED: NO NARCOTICS OR SEDATIVES SCH (03:00)
[2021-11-30] MEDS ORDERED: SODIUM CHLORIDE 0.9% 1000ML 1,000 ML IV SCH (03:00)
[2021-11-30] MEDS ORDERED: MEASLES, MUMPS & RUBELLA VIRUS VIAL SQ ONE (03:40)
[2021-11-30] MEDS ORDERED: HYDROCORTISONE ACETATE 25 MG SUPP PR PRN (03:40)
[2021-11-30] MEDS ORDERED: BENZOCAINE 20% AER SPR 82.5 GM CAN EXT PRN (03:40)
[2021-11-30] MEDS ORDERED: SENNA 8.6 MG TAB PO PRN (03:40)
[2021-11-30] MEDS ORDERED: DIPHTHERIA/TETANUS/PERTUSSIS 0.5 ML SYR/VIAL IM ONE (03:40)
[2021-11-30] MEDS ORDERED: MAGNESIUM HYDROXIDE SUSP 30 ML UDC PO PRN (03:40)
--- NOTE | 2021-11-30 03:45 | Post Operative Brief Note ---
Immediate Post Op Note v1 Date of Surgery November 30, 2021 Pre & Post Diagnosis Operation Date: 11/30/21 01:15 Pre-Op Diagnosis: 1.) Protracted labor with no cervical change despite adequate contractions 2.) Arrest of dilation in active phase Post-Op Diagnosis: Same I identified the patient and participated in the time-out.: Yes Procedure Operation Date: 11/30/21 01:15 Actual Procedures p Primary Section for the of a live male child at 0248. - Nicole Weller MD Surgeon Nicole Weller MD Crepe Machine Operator Delia Luna RN Estimated Blood Loss 700 Findings Consistent with Post-Op Diagnosis Anesthesia Type Spinal Complications none
--- NOTE | 2021-11-30 04:24 | Anesthesiology Progress Note ---
Date of Service November 30, 2021 Anesthesia Post Procedure Vital Signs Vital Signs: Temp Pulse Resp BP Pulse Ox 11/30/21 04:22 57 L 128/69 11/30/21 04:21 60 92 11/30/21 04:16 61 20 91 11/30/21 04:12 56 L 125/68 11/30/21 04:11 56 L 93 11/30/21 04:06 60 18 93 11/30/21 04:02 61 161/97 H 11/30/21 04:01 56 L 93 11/30/21 04:00 53 L 113/76 94 11/30/21 03:56 66 16 81 L 11/30/21 03:55 52 L 94 11/30/21 03:51 57 L 96 11/30/21 03:49 60 94 11/30/21 03:46 37.4 C 56 L 15 154/78 H 95 11/30/21 03:42 62 94 11/30/21 03:41 60 96 11/30/21 02:13 70 94 11/30/21 02:12 69 95 11/30/21 02:07 67 96 11/30/21 02:03 74 153/92 H 11/30/21 02:02 69 94 11/30/21 01:59 75 94 11/30/21 01:57 70 95 11/30/21 01:52 80 94 11/30/21 01:48 79 93 11/30/21 01:47 76 95 11/30/21 01:43 71 93 11/30/21 01:42 70 95 11/30/21 01:37 71 92 11/30/21 01:36 75 94 11/30/21 01:34 77 192/113 H 11/30/21 01:32 71 97 11/30/21 01:31 65 94 11/30/21 01:27 72 94 11/30/21 01:26 72 94 11/30/21 01:22 71 94 11/30/21 01:19 63 127/65 93 11/30/21 01:17 68 97 11/30/21 01:12 67 96 11/30/21 01:09 68 94 11/30/21 01:07 67 92 11/30/21 01:03 85 93 11/30/21 01:02 68 97 11/30/21 00:57 36.9 C 68 18 98 06/23/22 00:53 72 94 11/30/21 00:52 70 96 11/30/21 00:48 64 130/83 11/30/21 00:47 65 95 11/30/21 00:46 65 94 11/30/21 00:42 68 96 11/30/21 00:40 68 94 11/30/21 00:37 70 95 11/30/21 00:33 73 138/90 93 11/30/21 00:32 73 95 11/30/21 00:27 69 97 11/30/21 00:24 67 90 11/30/21 00:22 76 97 11/30/21 00:19 68 93 11/30/21 00:18 63 125/60 11/30/21 00:17 66 96 11/30/21 00:12 68 95 11/30/21 00:07 59 L 98 11/30/21 00:04 65 127/59 L 11/30/21 00:02 70 96 11/29/21 23:57 63 97 11/29/21 23:52 64 97 11/29/21 23:48 59 L 104/57 L 11/29/21 23:47 62 97 11/29/21 23:42 61 97 11/29/21 23:37 62 97 11/29/21 23:33 67 108/55 L 11/29/21 23:32 74 96 11/29/21 23:31 86 89 L 11/29/21 23:27 64 95 11/29/21 23:25 68 93 11/29/21 23:22 67 96 11/29/21 23:19 77 99/65 L 94 11/29/21 23:17 66 97 11/29/21 23:12 65 97 11/29/21 23:07 37.0 C 69 18 96 11/29/21 23:04 81 94 11/29/21 23:03 64 121/74 11/29/21 23:02 65 97 11/29/21 22:58 63 94 11/29/21 22:57 63 96 11/29/21 22:52 64 97 11/29/21 22:50 61 119/68 11/29/21 22:47 62 96 06 22:42 62 96 11/29/21 22:37 64 96 11/29/21 22:34 66 107/64 93 11/29/21 22:32 72 97 11/29/21 22:27 64 96 11/29/21 22:26 62 94 11/29/21 22:22 63 96 11/29/21 22:19 64 144/84 H 11/29/21 22:17 65 96 11/29/21 22:12 66 95 11/29/21 22:06 66 95 11/29/21 22:03 64 123/70 11/29/21 22:01 69 95 11/29/21 21:59 65 94 11/29/21 21:56 65 95 11/29/21 21:51 68 95 11/29/21 21:48 69 131/74 94 11/29/21 21:46 70 97 11/29/21 21:41 63 95 11/29/21 21:40 63 94 11/29/21 21:36 59 L 95 11/29/21 21:33 60 106/57 L 11/29/21 21:31 62 93 11/29/21 21:26 63 94 11/29/21 21:21 63 94 11/29/21 21:19 61 94 11/29/21 21:18 60 106/59 L 11/29/21 21:16 63 94 11/29/21 21:11 63 94 11/29/21 21:10 63 94 11/29/21 21:06 65 93 11/29/21 21:05 62 113/60 11/29/21 21:02 57 L 94 11/29/21 21:01 62 94 11/29/21 20:56 63 94 11/29/21 20:51 70 95 11/29/21 20:50 70 119/58 L 11/29/21 20:49 74 93 11/29/21 20:46 57 L 95 11/29/21 20:42 65 94 11/29/21 20:41 67 95 11/29/21 20:40 36.8 C 18 11/29/21 20:36 61 94 11/29/21 20:33 61 119/71 11/29/21 20:31 60 94 11/29/21 20:26 58 L 93 11/29/21 20:24 58 L 94 11/29/21 20:21 60 93 11/29/21 20:18 59 L 125/74 94 11/29/21 20:16 59 L 93 11/29/21 20:11 63 93 11/29/21 20:10 63 94 11/29/21 20:06 66 96 11/29/21 20:04 75 94 11/29/21 20:03 61 117/59 L 11/29/21 20:01 60 97 11/29/21 19:56 63 96 11/29/21 19:51 77 96 11/29/21 19:48 58 L 120/65 11/29/21 19:46 64 96 11/29/21 19:41 65 97 11/29/21 19:37 61 94 11/29/21 19:36 59 L 95 11/29/21 19:34 63 101/59 L 11/29/21 19:31 61 96 11/29/21 19:30 72 92 11/29/21 19:26 60 96 11/29/21 19:23 61 94 11/29/21 19:21 60 97 11/29/21 19:19 59 L 128/62 11/29/21 19:16 58 L 96 11/29/21 19:11 61 95 11/29/21 19:06 66 95 11/29/21 19:04 63 108/58 L 11/29/21 19:01 71 98 11/29/21 19:00 36.8 C 18 11/29/21 18:56 63 97 11/29/21 18:51 59 L 97 11/29/21 18:48 63 117/64 11/29/21 18:46 60 95 11/29/21 18:41 63 97 11/29/21 18:36 71 94 11/29/21 18:34 63 129/72 11/29/21 18:33 18 11/29/21 18:31 63 97 11/29/21 18:26 69 97 11/29/21 18:21 70 93 11/29/21 18:17 65 122/65 11/29/21 18:16 75 98 11/29/21 18:11 75 97 11/29/21 18:09 70 132/80 93 11/29/21 18:07 71 125/66 11/29/21 18:06 77 97 11/29/21 18:04 79 124/61 85 L 11/29/21 18:01 74 98 11/29/21 17:59 63 137/65 91 11/29/21 17:58 18 11/29/21 17:57 74 115/65 11/29/21 17:56 73 97 11/29/21 17:55 68 114/55 L 11/29/21 17:53 68 118/59 L 11/29/21 17:51 75 104/56 L 98 11/29/21 17:49 69 100/57 L 11/29/21 17:47 76 96/56 L 11/29/21 17:46 74 97 11/29/21 17:45 63 96/57 L 11/29/21 17:43 68 99/69 L 11/29/21 17:41 61 115/58 L 98 11/29/21 17:39 57 L 124/63 11/29/21 17:37 58 L 132/67 11/29/21 17:36 68 97 11/29/21 17:13 78 98 11/29/21 17:08 69 98 11/29/21 17:03 74 97 11/29/21 16:58 64 98 11/29/21 16:57 70 115/74 11/29/21 16:56 36.6 C 18 11/29/21 16:02 64 118/75 11/29/21 15:02 36.7 C 74 20 128/78 11/29/21 13:57 67 109/62 11/29/21 13:56 18 11/29/21 13:30 68 110/58 L 11/29/21 11:07 36.8 C 64 18 125/81 11/29/21 07:00 36.9 C 63 18 102/63 11/29/21 05:49 36.7 C 66 16 118/58 L Pain Intensity Abdomen: Pain Intensity: 1 Transfer of Care Handoff Completed per policy Notes Mental Status: alert / awake / arousable Patient Amnestic to Procedure: Yes Nausea / Vomiting: adequately controlled Pain: adequately controlled Airway Patency, RR, SpO2: stable & adequate BP & HR: stable & adequate Hydration State: stable & adequate Neuraxial Anesthesia: was administered and sensory block is resolving Anesthetic Complications: no major complications apparent and Pt Satisfied with anesthetic care
[2021-11-30] MEDS: OXYTOCIN 20 UNITS in LACTATED RINGER'S 1,000 ML IV SCH ×2 (05:13→14:45)
[2021-11-30] MEDS: KETOROLAC 30 MG/ML VIAL IV PRN ×2 (05:50→16:09)
[2021-11-30] MEDS: METHYLERGONOVINE MALEATE 0.2 MG TAB PO SCH ×5 (05:53→21:30)
--- NOTE | 2021-11-30 07:08 | Operative Report (OR) ---
DATE OF SURGERY: 11/30/2021. PREOPERATIVE DIAGNOSES: The patient is a 26-year-old G1, P0 at 41 weeks and 2 days of gestation, ind uction of labor since 11/28/2021, protracted labor, arrest of dilatation in active phase of labor jayro pite adequate uterine contractions, suspected cephalopelvic disproportion. POSTOPERATIVE DIAGNOSES: The patient is a 26-year-old G1, P0 at 41 weeks and 2 days of gestation, ind uction of labor since 11/28/2021, protracted labor, arrest of dilatation in active phase of labor jayro pite adequate uterine contractions, suspected cephalopelvic disproportion. PROCEDURE: Primary low transverse with Pfannenstiel skin incision. SURGEON: Nicole Weller MD. BIODIESEL PROCESSING TECHNICIAN: Delia Luna RN. ESTIMATED BLOOD LOSS: 700 mL. DRAINS: Rajput catheter drained 250 mL of clear urine. ANESTHESIA: Spinal. ANESTHESIOLOGIST: Dr. Greco. COMPLICATIONS: None. FINDINGS: Baby was a viable male delivered in cephalic presentation at 0248 a.m. Apgars were 8/8. Weight was 3678 grams. Post-maternal findings: Normal uterus, fallopian tubes, and ovaries. DESCRIPTION OF PROCEDURE: The patient was taken to the operating room where spinal anesthesia was gi lis without difficulty. She was placed in dorsal supine position with a leftward tilt. She was prep ared and draped in the usual sterile fashion. A Pfannenstiel skin incision was made and carried through to the underlying layer of fascia with the Bovie. Fascia was incised in the midline and incision was extended laterally with the help of Bledsoe s cissors. Upper aspect of the fascial incision was grasped with 2 Jo clamps, elevated. Underlying rectus muscles were dissected off sharply with Bledsoe scissors. Same thing was done on the lower aspe ct of the fascial incision. Rectus muscles were in the midline and peritoneum was entered bluntly with fingers. Peritoneal incision was extended superiorly and inferiorly with good visualiza tion of the bladder. Bladder blade was inserted and then Robe abdominal wall retractor was placed to retract the abdomin al wall during surgery and then vesicouterine peritoneum was identified, grasped with pickups, and en tered sharply with Metzenbaum scissors. Bladder flap was created digitally and bladder blade was ins erted. Lower uterine segment was incised in a transverse fashion. Incision was extended laterally w ith the help of fingers and membranes were ruptured and meconium stained fluid was obtained. Baby's head was delivered without difficulty. Shoulders were delivered with minimal traction. Nose and lynette th were suctioned. Baby was vigorously moving and crying at that point. The cord was clamped x2 and cut at 1 minute delay. Baby was handed to the awaiting pediatric team. Placenta was delivered manual ly as intact and complete. Uterus was exteriorized, cleared of all clots and debris. Uterine incision was repaired with 0 Vicry l in a running locked fashion. A second imbricating layer was placed with another 0 Vicryl in a runn ing locked fashion. Excellent hemostasis was achieved and then the cul-de-sac was irrigated with war m normal saline and suctioned. Normal ovaries and fallopian tubes were seen. The uterus was returned to the abdomen. Pelvis was irrigated with warm normal saline and suctioned. The incision was check ed to be hemostatic again. Parietal peritoneum was reapproximated with 3-0 Vicryl in a running fashi on. The rectus muscles were reapproximated with 2-0 Vicryl in a running fashion and under the fascia and over the rectus muscles were hemostatic. Rectus fascia was reapproximated with #1 Vicryl in a ru nning fashion. Subcuticular fat tissue was brought together with 3-0 Vicryl in a running fashion. T he skin was closed with 4-0 Monocryl in a subcuticular fashion. The patient tolerated the procedure well. Sponge, lap, and needle counts were correct x3. She was given 3 grams of cefazolin before romaine griffin and 900 mg of clindamycin during surgery. No complications happened. I was present during whol e procedure. The patient was taken to recovery room in stable condition. Job ID: [id number]
[2021-11-30] MEDS: DOCUSATE SODIUM 100 MG CAP PO SCH ×2 (08:26→21:30)
[2021-11-30] MEDS: PRENATAL VITAMIN 1 TAB PO SCH (08:26)
[2021-11-30] MEDS: SIMETHICONE 80 MG CHEW PO SCH ×4 (08:26→21:30)
[2021-11-30] MEDS: FERROUS SULFATE 325 MG TAB PO SCH (08:26)
[2021-11-30] MEDS: ceFAZolin 2000MG 2,000 MG/15 ML SYR IV SCH ×2 (10:17→18:29)
[2021-11-30] MEDS: CLINDAMYCIN/D5W 900 MG/50 ML BAG IV SCH ×2 (10:28→18:30)
[2021-11-30] MEDS ORDERED: diphenhydrAMINE Capsule 25 MG CAP PO PRN (20:56)
[2021-11-30] MEDS ORDERED: MEPERIDINE HCL 50 MG/ML CARP IV PRN (20:56)
[2021-11-30] MEDS ORDERED: PROMETHAZINE HCL 25 MG in SODIUM CHLORIDE 0.9% 50 ML IV PRN (20:56)
[2021-11-30] MEDS ORDERED: KETOROLAC 30 MG/ML VIAL IV PRN (20:56)
[2021-12-01] MEDS: oxyCODONE/ACETAMINOPHEN 5mg/325mg TAB PO PRN ×6 (00:05→23:18)
[2021-12-01] MEDS: IBUPROFEN 600 MG TAB PO PRN ×6 (00:06→23:17)
[2021-12-01] MEDS: ceFAZolin 2000MG 2,000 MG/15 ML SYR IV SCH (02:44)
[2021-12-01] MEDS: CLINDAMYCIN/D5W 900 MG/50 ML BAG IV SCH (02:50)
[2021-12-01 07:01] LABS: Basophils # (auto) 0.01 K/uL (0-0.2); Basophils % (auto) 0.1 %; Eosinophils # (auto) 0.15 K/uL (0-0.5); Eosinophils % (auto) 1.3 %; Immature Granulocytes # (auto) 0.02 K/uL (0.00-0.02); Immature Granulocytes % (auto) 0.2 %; Lymphocytes # (auto) 2.32 K/uL (1.2-3.4); Lymphocytes % (auto) 20.4 %; Mean Corpuscular Hemoglobin 29.3 pg (25-34); Mean Corpuscular Hgb Conc 33.3 g/dL (32-36); Mean Platelet Volume 10.7 fL (7.4-10.4); Monocytes # (auto) 0.72 K/uL (0.11-0.59); Monocytes % (auto) 6.3 %; Neutrophils # (auto) 8.18 K/uL (1.4-6.5); Neutrophils % (auto) 71.7 %; Platelet Count 194 K/uL (130-400); RDW Coefficient of Variation 13.1 % (11.5-14.5); RDW Standard Deviation 42.6 fL (36.4-46.3); Red Blood Count 3.41 M/uL (4.2-5.4)
[2021-12-01] MEDS: SIMETHICONE 80 MG CHEW PO SCH ×4 (08:07→20:40)
[2021-12-01] MEDS: DOCUSATE SODIUM 100 MG CAP PO SCH ×2 (08:07→20:40)
[2021-12-01] MEDS: PRENATAL VITAMIN 1 TAB PO SCH (08:07)
[2021-12-01] MEDS: FERROUS SULFATE 325 MG TAB PO SCH (08:07)
[2021-12-01] MEDS: METHYLERGONOVINE MALEATE 0.2 MG TAB PO SCH (08:54)
--- NOTE | 2021-12-01 09:41 | Obstetrical Progress Note ---
Date of Service December 01, 2021 Subjective Ambulation: ambulating normally Voiding: no voiding problems Diet Tolerance:: regular diet Lochia:: Small Feeding Type:: breast feeding Current Pain Level(1-10): 0 doing well Physical Exam Constitutional WD/WN, vitals as above Gastrointestinal (Abdomen) Inspection/Auscultation: abdomen normal to inspection and + abdominal surgical incision incision c/d/i Skin no rashes, warm and dry Neurologic patellar DTR's 2+ bilat, sensation intact Results & Data ([facility]) Vital Signs (Past 12 Hours) Vital Signs Temp Pulse Resp BP Pulse Ox 12/01/21 07:15 36.3 C L 68 18 109/72 97 11/30/21 23:09 36.9 C 75 18 105/66 97 Laboratory Results 11/28/21 11/28/21 12/01/21 08:09 08:09 06:44 WBC 8.36 11.40 H RBC 4.23 3.41 L Hgb 12.2 10.0 L Hct 36.5 L 30.0 L MCV 86.3 88.0 MCH 28.8 29.3 MCHC 33.4 33.3 RDW Std Deviation 41.1 42.6 RDW Coeff of Edis 13.1 13.1 Plt Count 245 194 MPV 11.4 H 10.7 H Immature Gran % (Auto) 0.2 Neut % (Auto) 71.7 Lymph % (Auto) 20.4 [place] % (Auto) 6.3 Eos % (Auto) 1.3 Baso % (Auto) 0.1 Neut # (Auto) 8.18 H Lymph # (Auto) 2.32 [place] # (Auto) 0.72 H Eos # (Auto) 0.15 Baso # (Auto) 0.01 Immature Gran # (Auto) 0.02 Blood Type A Positive Antibody Screen NEGATIVE
[2021-12-01] MEDS ORDERED: bisacodyL 5 MG TABEC PO SCH (20:00)
[2021-12-02] MEDS ORDERED: bisacodyL 10 MG SUPP PR PRN (03:40)
[2021-12-02] MEDS: oxyCODONE/ACETAMINOPHEN 5mg/325mg TAB PO PRN ×3 (03:58→12:52)
[2021-12-02] MEDS: IBUPROFEN 600 MG TAB PO PRN ×3 (03:58→12:52)
[2021-12-02 08:19] LABS: Hematocrit (blood only) 28.5 % (37-47); Hemoglobin 9.4 g/dL (12.0-16.0)
[2021-12-02] MEDS: DOCUSATE SODIUM 100 MG CAP PO SCH (08:41)
[2021-12-02] MEDS: SIMETHICONE 80 MG CHEW PO SCH (08:41)
[2021-12-02] MEDS: PRENATAL VITAMIN 1 TAB PO SCH (08:41)
[2021-12-02] MEDS: FERROUS SULFATE 325 MG TAB PO SCH (08:42)
--- NOTE | 2021-12-02 10:44 | Obstetrical Progress Note ---
Date of Service December 02, 2021 Assessment & Plan (1) delivery delivered: POD #2 pt doing well wishes to be discharged home Subjective Ambulation: ambulating normally Voiding: no voiding problems Passing Gas:: Yes Diet Tolerance:: clear liquids Lochia:: Small Feeding Type:: breast feeding Review of Systems All systems reviewed & are unremarkable except as noted in HPI & below Physical Exam Constitutional WD/WN, vitals as above well developed and well nourished Eyes PERRL, conjunctivae normal, anicteric sclerae ENMT external ear and nose normal, oropharynx normal Neck trachea midline, no thyromegaly Respiratory normal respiratory effort, lungs clear to auscultation Cardiovascular RRR, no murmur, no edema Chest (Breasts) normal inspection/palpation of breasts Gastrointestinal (Abdomen) normal bowel sounds, soft, nontender, no hepatosplenomegaly Musculoskeletal no cyanosis or clubbing, extremities motor strength 5/5 Skin no rashes, warm and dry + incision (Clean,dry and intact) Neurologic patellar DTR's 2+ bilat, sensation intact Psychiatric A+Ox3, euthymic affect Genitourinary normal external appearance Lymphatic no cervical or axillary lymphadenopathy Results & Data ([facility]) Vital Signs (Past 12 Hours) Vital Signs Temp Pulse Resp BP 12/02/21 08:15 36.6 C 75 18 118/79 12/01/21 23:05 36.4 C L 73 16 109/71
== END 2021-12-02 13:00 | disposition home or self-care (01) | DRG 788 ==
LOC: 4S1 07:44 → 4E1 11-30 06:30

== ENCOUNTER 2023-05-23 05:35 | Inpatient (IN) ==
--- NOTE | 2023-05-15 13:11 | Anesthesiology Consultation ---
Date of Service May 15, 2023 Assessment & Plan (1) Encounter for pre-operative examination: Chart Review Chart Review: drug enforcement administration agent initiated - Awaiting preop [facility] Covid test results -Infectious Disease screening: Per PAT nursing assessment on 05/15/23. Patient tested Covid positive with home test 03/14/23- symptoms resolved. Patient's coworker tested Covid positive 05/05/23- coworker worked from home for the first five days but is back in the office wearing a mask. Patient started with symptoms 05/12/23 of mild sinus congestion. No recent travel outside the country. Discussed with Dr. Casiano- will order [facility] preop Covid test= awaiting results (due to prolonged labor) 11/30/21= Done under SAB at L3-4 with 1 attemp t History Surgery Operation Date: 05/23/23 07:30 Proposed Procedures p Section (Delivery of the Baby Through Abdominal Incision) - Selma Arevalo DO Height/Weight Height: 5 ft Weight: 90.718 kg Allergies Allergy/AdvReac Type Severity Reaction Status Date / Time No Known Drug Allergies Allergy Verified 05/15/23 12:04 Medications Home Medications Medication Instructions Recorded Confirmed Last Taken prenat.vits,olya,[id number] 1 tab PO DAILY 11/28/21 05/15/23 11/28/21 06:30 breast pump #1 ea 04/05/23 05/10/23 Unknown Past Medical History Medical History (Updated 05/15/23 @ 15:58 by Jen Rosa PA-C) History of COVID-19 Most recently 03/14/23- tested positive with home Covid test - had muscle aches/soreness and sore throat Morbid obesity Cyst of thyroid monitoring Fatty liver Generalized anxiety disorder controlled currently Palpitations with nervous episodes. Thyroid enlarged Past Family History Family History Grandfather (Paternal) Diabetes Hypertension Father Graves disease Grandmother (Maternal) Hypertension Diabetes Mother Hypertension Pulmonary embolism Deep vein thrombosis Grandmother (Paternal) Multiple sclerosis Denies family history of Colon cancer Ovarian cancer Prostate cancer Myocardial infarction Breast cancer Past Surgical History Surgical History S/P section 11/2021 S/P tonsillectomy S/P tooth extraction Social History Smoking Status: Never smoker tobacco type: smokeless tobacco Do You Dip or Chew Tobacco: No Hx Alcohol Use: Yes (socially - none during ) alcohol intake frequency: holidays/special occasions only Hx Substance Use: No substance use type: does not use Lab Results Anesthesia Preop Results Results Anesthesia Widget: Hgb 11.6 g/dL (11.7-15.5) L 03/29/23 Hct 34.8 % (35.0-45.0) L 03/29/23
--- NOTE | 2023-05-22 17:34 | History & Physical Report ---
Date of Service May 22, 2023 Assessment & Plan (1) Previous delivery affecting , antepartum: Plan: Plan for repeat section. Reviewed risks, benefits, alternatives and informed consent in office. She is agreeable. History of Present Illness Chief Complaint: repeat CS Primary Care Provider: Chaya Beckford MD 28yo with EDC 05/29/23, repeat scheduled. Previous --ltcs 11/30/21, short interval, lmp 08/2022 *Not a candidate for OLEG C/S SCHEDULED FOR 05/23/[address] TEJADA Thyroid cysts BMI 35-39 Beginning of *Growth US at 32wks *Weekly NSTs at 36wks Allergies Allergy/AdvReac Type Severity Reaction Status Date / Time No Known Drug Allergies Allergy Verified 05/22/23 08:40 Home Medications Medication Instructions Recorded Confirmed Type prenat.vits,olya,[id number] 1 tab PO DAILY 11/28/21 05/22/23 History breast pump #1 ea 04/05/23 05/22/23 Rx Patient History Medical History (Updated 05/15/23 @ 15:58 by Jen Rosa PA-C) History of COVID-19 Most recently 03/14/23- tested positive with home Covid test - had muscle aches/soreness and sore throat Morbid obesity Cyst of thyroid monitoring Fatty liver Generalized anxiety disorder controlled currently Palpitations with nervous episodes. Thyroid enlarged Surgical History S/P section 11/2021 S/P tonsillectomy S/P tooth extraction Family History Grandfather (Paternal) Diabetes Hypertension Father Graves disease Grandmother (Maternal) Hypertension Diabetes Mother Hypertension Pulmonary embolism Deep vein thrombosis Grandmother (Paternal) Multiple sclerosis Denies family history of Colon cancer Ovarian cancer Prostate cancer Myocardial infarction Breast cancer Social History (Updated 10/10/22 @ 15:10 by Chelsea Velazco) Smoking Status: Never smoker Second Hand Exposure: No; Do You Dip or Chew Tobacco: No; Hx Alcohol Use: Yes (socially - none during ) Hx Substance Use: No Preferred Language: Bulgarian Communication Ability: Effective Visual Impairment: No Limitations Hearing Ability: Normal Clinical Statistical Programmer Required: No Beliefs That Will Affect Care: None marital status: marital status details: Jin Cabrera (28) [phone] Current Living Situation: Spouse and Family Current Living Situation Comment: lives with spouse, child, dog, cat-spouse changing litter current occupational status: employed 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 No s/s chorio or abruption. Skin: no rashes, warm and dry Psychiatric: A+Ox3, euthymic affect Coding Level of Care Code None Diagnoses Previous delivery affecting , antepartum O34.219
[2023-05-23] MEDS ORDERED: SODIUM CHLORIDE 0.9% 250 ML IV PRN ×2 (05:37→18:07)
[2023-05-23] MEDS ORDERED: CITRIC ACID/SODIUM CITRATE 15 ML UDC PO SCH (06:00)
[2023-05-23] MEDS ORDERED: LACTATED RINGER'S 1,000 ML IV SCH ×2 (06:00→09:04)
[2023-05-23] MEDS ORDERED: ceFAZolin 2,000 MG in SYRINGE 0 ML IV SCH (06:00)
[2023-05-23 06:10] LABS: Basophils # (auto) 0.02 K/uL (0.00-0.20); Basophils % (auto) 0.2 %; Eosinophils # (auto) 0.08 K/uL (0.00-0.50); Eosinophils % (auto) 0.9 %; Hematocrit (blood only) 32.4 % (37.0-47.0); Hemoglobin 11.2 g/dl (12.0-16.0); Immature Granulocytes # (auto) 0.04 K/uL (0.01-0.20); Immature Granulocytes % (auto) 0.4 %; Lymphocytes # (auto) 2.69 K/uL (1.20-3.40); Lymphocytes % (auto) 30.2 %; Mean Corpuscular Hemoglobin 29.4 pg (25.0-34.0); Mean Corpuscular Hgb Conc 34.6 g/dL (32.0-36.0); Mean Platelet Volume 10.6 fL (9.4-12.4); Monocytes # (auto) 0.58 K/uL (0.11-0.59); Monocytes % (auto) 6.5 %; Neutrophils % (auto) 61.8 %; Platelet Count 233 K/uL (130-400); RDW Coefficient of Variation 12.7 % (11.5-14.5); RDW Standard Deviation 39.2 fL (36.4-46.3); Red Blood Count 3.81 M/uL (4.20-5.40); White Blood Count 8.91 K/ul (4.8-10.8)
[2023-05-23] MEDS ORDERED: fentaNYL citrate PF 100 MCG/2 ML VIAL ONE (06:42)
[2023-05-23] MEDS ORDERED: MoRPHine SULFATE PF 1 MG/ML 10 ML AMP/VIAL ONE (06:42)
[2023-05-23] MEDS ORDERED: OXYTOCIN 10 UNITS/ML VIAL ONE ×3 (06:43)
[2023-05-23] MEDS ORDERED: PHENYLEPHRINE HCL 10 MG/ML VIAL ONE (07:08)
--- NOTE | 2023-05-23 07:25 | History & Physical Bridge Note ---
Date of Service May 23, 2023 History & Physical Bridge Note I have examined the patient, reviewed the History & Physical and in the interval since the performance of the History & Physical I have noted the following changes of clinical significance: no changes noted
[2023-05-23] MEDS ORDERED: LACTATED RINGER'S 500 ML IV PRN ×2 (07:44→09:46)
[2023-05-23] MEDS ORDERED: NALOXONE HCL 0.08 MG in SYRINGE 1.8 ML IV PRN ×2 (07:44→09:46)
[2023-05-23] MEDS ORDERED: HYDROmorphone INJ 0.5 MG/0.5 ML SYR IV PRN ×2 (07:44→09:46)
[2023-05-23] MEDS ORDERED: diphenhydrAMINE 50 MG/ML VIAL IV PRN ×2 (07:44→09:46)
[2023-05-23] MEDS ORDERED: ePHEDrine sulfate 50 MG/ML AMP IV PRN ×2 (07:44→09:46)
[2023-05-23] MEDS ORDERED: MoRPHine SULFATE PF 1 MG/ML 10 ML AMP/VIAL INT SPINAL ONE ×2 (07:44→09:46)
[2023-05-23] MEDS ORDERED: NALOXONE HCL 1 MG in SODIUM CHLORIDE 0.9% 1,000 ML IV PRN ×2 (07:44→09:46)
[2023-05-23] MEDS ORDERED: NALBUPHINE HCL 5 MG in SYRINGE 0 ML IV PRN ×2 (07:44→09:46)
[2023-05-23] MEDS ORDERED: KETOROLAC 30 MG/ML VIAL IV PRN ×2 (07:44→09:46)
[2023-05-23] MEDS ORDERED: ONDANSETRON INJ 2 MG/ML 2 ML VIAL IV PRN ×2 (07:44→09:04)
[2023-05-23] MEDS ORDERED: NALOXONE HCL 0.4 MG/1 ML VIAL/CARP IV PRN ×2 (07:44→09:46)
[2023-05-23] MEDS ORDERED: NO NARCOTICS OR SEDATIVES SCH ×2 (07:45→10:00)
[2023-05-23] MEDS ORDERED: SODIUM CHLORIDE 0.9% 1,000 ML IV SCH ×2 (07:45→10:00)
[2023-05-23] MEDS ORDERED: DC INTRASPINAL MORPHINE SCH ×2 (07:45→10:00)
--- NOTE | 2023-05-23 08:57 | Operative Report ---
PG Post Operative Report Pre & Post Diagnosis Operation Date: 05/23/23 07:30 Pre: Repeat section, not candidate d/t short interval Post: same I identified the patient and participated in the time-out.: Yes Procedure Operation Date: 05/23/23 07:30 Repeat Low Transverse Section Surgeon Selma Arevalo DO Clean Room Technician Elvis Roger MD, Juan Juares RN Estimated Blood Loss 600 Findings Consistent with Post-Op Diagnosis Specimens Cord blood, cord gas, placenta Drains garcia clear yellow Anesthesia Type Spinal Complications none Disposition Accompanied Patient To Recovery: No Disposition: L&D Indications 28yo @ 39 06/16, h/o section x 1, short interval Description of Procedure The patient was seen in her labor and delivery room, risks benefits and alternatives to surgery were reviewed. Informed consent obtained. Questions were answered. She was taken to the operating room, spinal anesthesia was administered. She was then prepared and draped in the usual sterile fashion in the supine position with a leftward tilt. Timeout was confirmed. A Pfannenstiel skin incision was made with a scalpel through the prior incision, and carried through to the underlying layer of fascia. Fascia was nicked at midline, and this incision was extended bilaterally. The superior aspect of the fascial incision was grasped with Jo clamps x2, elevated off the underlying rectus abdominis muscles, and dissected sharply and bluntly. In similar fashion, the inferior aspect of the fascial incision was dissected. The rectus abdominis muscles were , and the peritoneum was entered bluntly digitally. This was extended bilaterally. The bladder flap was taken down carefully using Metzenbaum scissors. Using a new scalpel, a low transverse uterine incision was created. Clear amniotic fluid noted. The was delivered from a cephalic presentation. The head delivered, followed by shoulders and body. Spontaneous cry on the field. The cord was doubly clamped and cut, and the infant was handed off to the waiting chucking and sawing machine operator. A segment was retained for cord gases. Cord blood was obtained. The placenta was delivered spontaneously intact. The uterus was exteriorized, and cleared of all clots and debris. The hysterotomy incision was reapproximated using 0 Vicryl in a running locked stitch. A second layer of the same suture was used to imbricate the incision. Thin uterine wall, but not a window. Posterior uterus was evaluated and normal. The uterus was returned to the abdomen, and gutters were cleared of clots and debris. Excellent hemostasis was observed. The fascial incision was reapproximated using 0 Vicryl in a running stitch. The subcutaneous tissue was irrigated, and reapproximated using 2-0 plain gut in a running stitch. The skin was reapproximated using 4-0 Vicryl in a running subcuticular stitch. Steri-Strips and a bandage were applied. The patient tolerated the procedure well, and will be taken to the recovery area in stable and good condition. I attest to the content of the Intraoperative Record and any orders documented therein. Any exceptions are noted below. OB Procedure Charges [id number]
--- NOTE | 2023-05-23 09:01 | Anesthesiology Progress Note ---
Date of Service May 23, 2023 Anesthesia Post Procedure Vital Signs Vital Signs: Temp Pulse Resp BP Pulse Ox 05/23/23 08:59 65 99 05/23/23 08:54 63 99 05/23/23 08:49 100 05/23/23 08:49 57 L 05/23/23 08:49 57 L 108/56 L 05/23/23 05:55 36.3 C L 18 05/23/23 05:47 81 108/66 Notes Mental Status: alert / awake / arousable Patient Amnestic to Procedure: Yes Nausea / Vomiting: adequately controlled Pain: adequately controlled Airway Patency, RR, SpO2: stable & adequate BP & HR: stable & adequate Hydration State: stable & adequate Neuraxial Anesthesia: was administered and sensory block is resolving Anesthetic Complications: no major complications apparent
[2023-05-23] MEDS ORDERED: BENZOCAINE 20% SPRY 85 APPLN/85 GM CAN EXT PRN (09:04)
[2023-05-23] MEDS ORDERED: MAGNESIUM HYDROXIDE SUSP 30 ML UDC PO PRN (09:04)
[2023-05-23] MEDS ORDERED: DIPHTHERIA/TETANUS/PERTUSSIS Vaccine (Tdap, Age 7+yrs) 0.5mL SYR/VL IM ONE (09:04)
[2023-05-23] MEDS ORDERED: SENNA 8.6 MG TAB PO PRN (09:04)
[2023-05-23] MEDS ORDERED: HYDROCORTISONE ACETATE 25 MG SUPP PR PRN (09:04)
[2023-05-23 09:16] LABS: Base Excess Cord Arterial Bld -1.7 mEq/L (-9-1.8); Base Excess Cord Venous Blood -1.5 mEq/L (-7.7-1.9); CO2 Cord Arterial Blood 50 mmHg (39.1-73.5); Cord Venous Blood HCO3 23 mmol/L (18.4-26.8); Cord Venous Blood PCO2 37 mmHg (30.4-57.2); Cord Venous Blood PO2 44 mmHg (14.1-43.3); HCO3 Cord Arterial Blood 25 mmol/L (19.7-28.5); O2 Saturation Cord Venous Bld 84.2 % (<68); Oxygen Sat Cord Arterial Blood < 60.0 % (<60); PO2 Cord Arterial Blood < 20 mmHg (4.1-31.7); pH Cord Arterial Blood 7.31 (7.1-7.38)
[2023-05-23] MEDS: OXYTOCIN 30 UNITS/LR 1,003 ML IV SCH ×2 (10:50→17:12)
[2023-05-23] MEDS ORDERED: GELATIN SPONGE SZ 100 ONE (10:59)
[2023-05-23] MEDS: SIMETHICONE 80 MG CHEW PO SCH ×3 (12:27→20:35)
[2023-05-23] MEDS: DOCUSATE SODIUM 100 MG CAP PO SCH (20:35)
[2023-05-24] MEDS ORDERED: diphenhydrAMINE Capsule 25 MG CAP PO PRN (02:00)
[2023-05-24] MEDS ORDERED: PROMETHAZINE HCL 25 MG in SODIUM CHLORIDE 0.9% 50 ML IV PRN (02:00)
[2023-05-24] MEDS ORDERED: KETOROLAC 30 MG/ML VIAL IV PRN (02:00)
[2023-05-24] MEDS ORDERED: diphenhydrAMINE 50 MG/ML VIAL IV PRN (02:00)
[2023-05-24] MEDS: IBUPROFEN 600 MG TAB PO PRN ×4 (04:26→20:04)
[2023-05-24] MEDS: oxyCODONE/ACETAMINOPHEN 5mg/325mg TAB PO PRN ×4 (05:20→20:04)
--- NOTE | 2023-05-24 06:04 | Obstetrical Progress Note ---
Date of Service May 24, 2023 Assessment & Plan (1) Encounter for care and examination after delivery: Plan -Vital signs reviewed and WNL -HGB reviewed -Blood type A+ -Rubella unknown -Pt doing well clinically -Encourage ambulation -Monitor and control pain with Motrin prn -Monitor lochia -Encourage Admission and Anticipated Discharge Date Admission Date: May 23, 2023 Supervising Physician Co-Signing Physician Notes Resident Physician Supervision Note: I was present with Dr. Stas Luna during the history and exam. I discussed the case with the resident and agree with the findings and plan as documented in the note. Any exceptions or clarifications are listed here: POD#1 doing well, routine postop care. Documented By: Selma Arevalo, Subjective 28 yo post- day 1 s/p C/S Ambulation: ambulating normally Voiding: no voiding problems Passing Gas:: Yes Diet Tolerance:: regular diet Lochia:: Small Feeding Type:: breast feeding Current Pain Level: moderate, controlled with pain medication Resting comfortably this AM in NAD. Denies PHAM, CP, SOB, N/V/D, LE pain/swelling. Review of Systems Review of Systems: All systems reviewed & are unremarkable except as noted in HPI & below Physical Exam Physical Exam: General: patient resting comfortably, NAD, non-toxic in appearance, AA&O x 4, answers questions appropriately. Skin: warm, dry, intact HEENT: NC/AT, anicteric sclera, conjunctiva without injection, moist mucus membranes. Heart: +S1/S2, regular, no m/r/g Lungs: equal air entry bilaterally, no rales/rhonchi/wheezes Abd: +BS, soft, NT/ND, uterine fundus firm at umbilicus, wound clean and dry, no bleeding, no erythema Ext: warm, no clubbing/cyanosis or edema, Marjorie's neg. Neuro: nonfocal, patient AA&O x 4, speech intact, no facial droop, moving all extremities on command. Results & Data Vital Signs (Past 12 Hours) Vital Signs Temp Pulse Resp BP Pulse Ox O2 Del Method 05/24/23 05:23 103/64 05/24/23 05:21 89/53 L 05/24/23 04:00 37.1 C 75 16 99/61 L 97 Room Air 05/24/23 02:07 18 97 05/24/23 01:00 16 98 05/24/23 00:00 16 97 05/23/23 23:15 36.5 C 67 18 99/62 L 97 Room Air 05/23/23 22:00 18 97 05/23/23 21:00 18 97 05/23/23 20:35 36.6 C 69 18 103/66 97 Room Air 05/23/23 18:15 18 98 Resident Activity Tracking Resident Involvement: Resident Care Provided Care Provided: OB Delivery
[2023-05-24 07:09] LABS: Basophils # (auto) 0.02 K/uL (0.00-0.20); Basophils % (auto) 0.2 %; Eosinophils # (auto) 0.05 K/uL (0.00-0.50); Eosinophils % (auto) 0.5 %; Hematocrit (blood only) 31.3 % (37.0-47.0); Hemoglobin 10.7 g/dl (12.0-16.0); Immature Granulocytes # (auto) 0.04 K/uL (0.01-0.20); Immature Granulocytes % (auto) 0.4 %; Lymphocytes # (auto) 1.52 K/uL (1.20-3.40); Lymphocytes % (auto) 14.3 %; Mean Corpuscular Hemoglobin 29.6 pg (25.0-34.0); Mean Corpuscular Hgb Conc 34.2 g/dL (32.0-36.0); Mean Corpuscular Volume 86.7 fL (80.0-100.0); Mean Platelet Volume 10.5 fL (9.4-12.4); Monocytes # (auto) 0.68 K/uL (0.11-0.59); Monocytes % (auto) 6.4 %; Neutrophils # (auto) 8.33 K/uL (1.40-6.50); Neutrophils % (auto) 78.2 %; Platelet Count 190 K/uL (130-400); RDW Coefficient of Variation 12.5 % (11.5-14.5); Red Blood Count 3.61 M/uL (4.20-5.40); White Blood Count 10.64 K/ul (4.8-10.8)
[2023-05-24] MEDS ORDERED: FERROUS SULFATE 325 MG TAB PO SCH (08:00)
[2023-05-24] MEDS ORDERED: PRENATAL VITAMIN 1 TAB PO SCH (08:00)
[2023-05-24] MEDS: SIMETHICONE 80 MG CHEW PO SCH ×4 (08:19→20:03)
[2023-05-24] MEDS: DOCUSATE SODIUM 100 MG CAP PO SCH ×2 (08:19→20:03)
[2023-05-24] MEDS ORDERED: bisacodyL 5 MG TABEC PO SCH (20:00)
[2023-05-25] MEDS: IBUPROFEN 600 MG TAB PO PRN ×2 (03:32→08:06)
[2023-05-25] MEDS: oxyCODONE/ACETAMINOPHEN 5mg/325mg TAB PO PRN ×2 (03:33→08:06)
--- NOTE | 2023-05-25 06:30 | Obstetrical Progress Note ---
Date of Service May 25, 2023 Assessment & Plan (1) Encounter for care and examination after delivery: Plan -Vital signs reviewed and WNL -HGB reviewed -Blood type A+ -Rubella immune -Pt doing well clinically -Encourage ambulation -Monitor and control pain with Motrin prn -Monitor lochia -Encourage -Discharge today, instructions explained Admission and Anticipated Discharge Date Admission Date: May 23, 2023 Supervising Physician Co-Signing Physician Notes Resident Physician Supervision Note: I was present with Dr. Mcclelland during the history and exam. I discussed the case with the resident and agree with the findings and plan as documented in the note. Any exceptions or clarifications are listed here: [None] Documented By: Barbara Cervantes MD, FACOG Subjective 28 yo POD 2 s/p C/S Ambulation: ambulating normally Voiding: no voiding problems Passing Gas:: Yes Diet Tolerance:: regular diet Lochia:: Small Feeding Type:: breast feeding Current Pain Level: moderate, controlled with pain medication Resting comfortably this AM in NAD. Denies PHAM, CP, SOB, N/V/D, LE pain/swelling. Review of Systems Review of Systems: All systems reviewed & are unremarkable except as noted in HPI & below Physical Exam Physical Exam: General: patient resting comfortably, NAD, non-toxic in appearance, AA&O x 4, answers questions appropriately. Skin: warm, dry, intact HEENT: NC/AT, anicteric sclera, conjunctiva without injection, moist mucus membranes. Heart: +S1/S2, regular, no m/r/g Lungs: equal air entry bilaterally, no rales/rhonchi/wheezes Abd: +BS, soft, NT/ND, uterine fundus firm at umbilicus, wound clean and dry, no bleeding, no erythema Ext: warm, no clubbing/cyanosis or edema, Marjorie's neg. Neuro: nonfocal, patient AA&O x 4, speech intact, no facial droop, moving all extremities on command. Results & Data Vital Signs (Past 12 Hours) Vital Signs Temp Pulse Resp BP Pulse Ox O2 Del Method 05/24/23 22:59 36.8 C 68 19 100/64 97 Room Air 05/24/23 19:35 36.8 C 77 18 100/65 98 Room Air Resident Activity Tracking Resident Involvement: Resident Care Provided Care Provided: OB Delivery
[2023-05-25 06:41] LABS: Hematocrit (blood only) 31.2 % (37.0-47.0); Hemoglobin 10.4 g/dl (12.0-16.0)
[2023-05-25] MEDS ORDERED: bisacodyL 10 MG SUPP PR PRN (08:48)
--- NOTE | 2023-05-27 17:46 | Discharge Summary ---
Date of Service May 27, 2023 Admission HPI Per Admitting Provider 28yo with EDC 05/29/23, repeat scheduled. Previous --ltcs 11/30/21, short interval, lmp 08/2022 *Not a candidate for OLEG C/S SCHEDULED FOR 05/23/[address] AREVALO Thyroid cysts BMI 35-39 Beginning of *Growth US at 32wks *Weekly NSTs at 36wks Admission Exam (Per Admitting) Constitutional WD/WN, vitals as above Respiratory normal respiratory effort, lungs clear to auscultation no respiratory distress Cardiovascular Rate/Rhythm: regular rate and regular rhythm Gastrointestinal (Abdomen) Inspection/Auscultation: abdomen normal to inspection Percussion/Palpation: abdomen soft; abdomen nontender Skin no rashes, warm and dry Psychiatric A+Ox3, euthymic affect Discharge Data Consultations 05/23/23 05:34 Consult Anesthesiology Stat Procedures Performed Operation Date: 05/23/23 07:30 Actual Procedures p Section (Delivery of the Baby Through Abdominal Incision) delivery of live female childat [id number] - Selma Arevalo, DO Hospital Course (1) Encounter for care and examination after delivery: Plan -Vital signs reviewed and WNL -HGB reviewed -Blood type A+ -Rubella immune -Pt doing well clinically -Encourage ambulation -Monitor and control pain with Motrin prn -Monitor lochia -Encourage -Discharge today, instructions explained Coding Level of Care Code None Diagnoses Encounter for care and examination after delivery Z39.2
== END 2023-05-25 11:10 | disposition home or self-care (01) | DRG 788 ==
LOC: 4S1 05:35 → EDSTATUS 07:30 → 4E2 12:03